=== PATIENT | female | born 1955 | race Caucasian/White ===

== ENCOUNTER 2022-04-24 07:45 | Outpatient (CLI) | payer MEDICARE, OTHER | END 2022-04-24 07:46 | disposition home or self-care (01) | LOC: CSHRAD 07:45 | PROVIDERS: ATTEND Surgery | DX: K21.9 Gastro-esophageal reflux disease without esophagitis (principal); R06.81 Apnea, not elsewhere classified | CPT/HCPCS: 74220 ==

== ENCOUNTER 2024-07-23 11:22 | Outpatient (CLI) | payer MEDICARE | END 2024-07-23 11:23 | disposition home or self-care (01) | LOC: CSHMAMMO 11:22 | PROVIDERS: ATTEND Obstetrics & Gynecology | DX: Z12.31 Encounter for screening mammogram for malignant neoplasm of breast (principal) | CPT/HCPCS: 77063; 77067 ==

== ENCOUNTER 2024-07-24 09:27 | Outpatient (CLI) | payer MEDICARE ==
[2024-07-24 11:13] LABS: #Basophils 0.03 10x3/uL (0.0-0.2); #Eosinophils 0.13 10x3/uL (0.0-0.5); #Monocytes 0.47 10x3/uL (0.0-1.1); #Neutrophils 2.25 10x3/uL (1.5-8.4); %Basophils 0.6 % (0.0-2.0); %Eosinophils 2.5 % (0.0-6.0); %Lymphocytes 43.7 % (18.0-47.0); %Monocytes 9.2 % (0.0-10.0); %Neutrophils 43.8 % (40.0-75.0); Hematocrit 40.1 % (34.9-44.5); Hemoglobin 13.1 g/dL (12.0-15.5); Mean Corpuscular HGB CONC 32.7 g/dL (32.0-36.0); Mean Corpuscular Hemoglobin 29.8 pg (27.0-33.0); Mean Corpuscular Volume 91.1 fL (81.6-98.3); Mean Platelet Volume 10.2 fL (7.4-10.4); Platelet Count 166 10x3/uL (150-450); White Blood Cell (WBC) Count 5.1 10x3/uL (3.5-10.5)
[2024-07-24 11:47] LABS: ALT (SGPT) 22 U/L (8-55); AST (SGOT) 23 U/L (5-34); Albumin 3.8 g/dL (3.4-4.8); Alkaline Phosphatase 90 U/L (40-110); Anion Gap 14 mmol/L (10-20); BUN (Urea Nitrogen) 19 mg/dL (9.8-20.1); Bilirubin, Direct 0.1 mg/dL (0.1-0.3); Bilirubin, Total 0.3 mg/dL (0.2-1.2); Calc. Creatinine Clearance 0 mL/min (70-130); Calcium 9.2 mg/dL (7.8-10.44); Carbon Dioxide 27 mmol/L (23-31); Chloride 104 mmol/L (98-107); Estimated GFR 81; Glucose 91 mg/dL (80-115); Potassium 3.7 mmol/L (3.5-5.1); Protein, Total 6.3 g/dL (5.8-8.1); Sodium 141 mmol/L (136-145)
== END 2024-07-24 09:28 | disposition home or self-care (01) ==
LOC: CSHLAB 09:27
PROVIDERS: ATTEND Surgery
DX: Z01.818 Encounter for other preprocedural examination (principal); K80.20 Calculus of gallbladder without cholecystitis without obstruction; K43.9 Ventral hernia without obstruction or gangrene
CPT/HCPCS: 80048; 80076; 85025; 93005; 93010

== ENCOUNTER 2024-07-28 09:50 | Outpatient (CLI) | payer MEDICARE | END 2024-07-28 09:51 | disposition home or self-care (01) | LOC: CSHMAMMO 09:50 | PROVIDERS: ATTEND Obstetrics & Gynecology | DX: M85.80 Other specified disorders of bone density and structure, unspecified site (principal); Z78.0 Asymptomatic menopausal state | CPT/HCPCS: 77080 ==

== ENCOUNTER 2025-07-30 09:51 | Outpatient (CLI) | payer MEDICARE ==
[2025-07-30] MEDS ORDERED: Iopamidol 300 61% 100 ML VIAL FS ONE (14:06)
== END 2025-07-30 09:52 | disposition home or self-care (01) ==
LOC: CSHCT 09:51
PROVIDERS: ATTEND Surgery
DX: R10.10 Upper abdominal pain, unspecified (principal); Z98.84 Bariatric surgery status; Z90.49 Acquired absence of other specified parts of digestive tract; K90.9 Intestinal malabsorption, unspecified
CPT/HCPCS: 74177; Q9967

== ENCOUNTER 2025-08-25 11:06 | Outpatient (CLI) | payer MEDICARE | END 2025-08-25 11:07 | disposition home or self-care (01) | LOC: CSHMAMMO 11:06 | PROVIDERS: ATTEND Obstetrics & Gynecology | DX: Z12.31 Encounter for screening mammogram for malignant neoplasm of breast (principal) | CPT/HCPCS: 77063; 77067 ==